=== PATIENT | female | born 2000 | race Caucasian/White ===

== ENCOUNTER 2019-01-23 15:43 | Inpatient (IN) | payer OTHER ==
[2019-01-23] MEDS ORDERED: BETAMET ACET/BETAMET NA PH 30 MG/5 ML VIAL ONE (16:29)
[2019-01-23] MEDS: BETAMET ACET/BETAMET NA PH 30 MG/5 ML VIAL IM SCH (16:35)
[2019-01-23 16:52] VITALS: BMI 38.0
[2019-01-23 17:39] LABS: BASO % 0.2 % (0-2.0); EOS % 0.2 % (0-4.5); HEMATOCRIT 28.1 % (32.4-45.2); HEMOGLOBIN 9.1 GM/dL (10.7-15.3); LYMPH % 26.7 % (8-40); MCH 25.4 pg (25.7-33.7); MCHC 32.2 g/dl (32.0-36.0); MEAN CELL VOLUME 78.8 fl (80-96); MEAN PLT VOLUME 9.3 fl (7.5-11.1); NEUT % 67.9 % (42.8-82.8); PLATELET COUNT 201 K/MM3 (134-434); RBC 3.57 M/mm3 (3.60-5.2); RDW 15.4 % (11.6-15.6); RETICULOCYTES 1.88 % (0.5-1.5)
[2019-01-23 17:55] LABS: INR 0.87 (0.83-1.09); PROTHROMBIN TIME (PATIENT) 10.3 SEC (9.7-13.0)
[2019-01-23 17:58] LABS: ACTIVATED PTT 26.2 SECONDS (25.2-36.5)
[2019-01-23 17:59] LABS: ANION GAP 9 MMOL/L (8-16); BLOOD UREA NITROGEN 14 mg/dL (7-18); CALCIUM 7.8 mg/dL (8.5-10.1); CHLORIDE 108 mmol/L (98-107); CO2 24 mmol/L (21-32); CREATININE 0.6 mg/dL (0.55-1.3); GAMMA GLUTAMYL TRANSPEPTIDASE 7 U/L (5-85); GLUCOSE,RANDOM 93 mg/dL (74-106); POTASSIUM 4.2 mmol/L (3.5-5.1); SGOT/AST 38 U/L (15-37); SGPT/ALT 60 U/L (13-61); SODIUM 141 mmol/L (136-145); URIC ACID 3.6 mg/dL (2.6-7.2)
[2019-01-23] MEDS ORDERED: TUBERCULIN PPD 5 TU/0.1ML SYRINGE (IN PATIENT USE ONLY) ID ONE (18:00)
[2019-01-23] MEDS ORDERED: ACETAMINOPHEN 325 MG TABLET (FP) ONE (18:22)
[2019-01-23] MEDS: ACETAMINOPHEN 325 MG TABLET (FP) PO ONE ×2 (18:30→19:00)
[2019-01-23] MEDS ORDERED: ACETAMINOPHEN 325 MG TABLET (FP) PO ONE (19:15)
[2019-01-23] MEDS ORDERED: DEXTROSE 5%-LACTATED RINGERS 1,000 ML IV SCH (19:30)
[2019-01-23] MEDS ORDERED: MAGNESIUM 4GM/H20 - 4 GM/100 ML IVPB IVPB SCH (20:25)
[2019-01-23] MEDS ORDERED: MAGNESIUM SULFATE 20GM/500ML - 20 GM/500 ML INFUS.BAG ONE (20:26)
[2019-01-23] MEDS ORDERED: MAGNESIUM SULFATE IN WATER 4 GM/50 ML IVPB IVPB ONE (20:26)
[2019-01-23] MEDS: MAGNESIUM SULFATE 20GM/500ML - 20 GM/500 ML INFUS.BAG IV SCH (20:55)
--- NOTE | 2019-01-23 21:15 | HP ---
Past Medical History - Admission History of Present Illness: 18 yo @ 33 3/7 wks by first trimester ultrasound, EDC 03/10/2019 complicated by: 1. Obesity - BMI 35 Normal early GCT (83) and normal routine GCT screen (99) 2. Anemia - on ferrous sulfate 3. Rubella Non-immune Patient was seen at her routine obstetrical visit at 32 weeks where she was noted to have 4+ urine protein and new onset edema. She had normal blood pressures at that time and denied preeclamptic symptoms. She collected a 24 hour urine which resulted in 4700 grams and had an elevated AST 36, ALT 76. She was seen in the office today with BPs 138 / 93. She was sent to L&D for BP monitoring, betamethasone administration and repeat labs. 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 Weeks Gestation by Dates: 33.3 ...EDC by Dates: 03/10/19 Heme/Onc: Yes: Anemia - Past Surgical History Hx Myomectomy: No Hx Transabdominal Cerclage: No Additional Surgical History: Tonsils & Adenoids. Laparoscopic cholecystectomy - Smoking History Smoking history: Never smoked Have you smoked in the past 12 months: No - Alcohol/Substance Use Hx Alcohol Use: No History of Substance Use: reports: None - Social History History of Recent Travel: No Home Medications - Allergies Allergies/Adverse Reactions: Allergies Allergy/AdvReac Type Severity Reaction Status Date / Time No Known Drug Allergies Allergy Verified 12/17/18 20:26 - Home Medications Home Medications: Ambulatory Orders Vit 108/Iron/Folic AC [ One Tablet] 1 tab PO DAILY 12/17/18 Family Disease History - Family Disease History Family History: Denies Review of Systems - Review of Systems Constitutional: reports: No Symptoms HENT: reports: No Symptoms Neck: reports: No Symptoms Cardiovascular: reports: No Symptoms Respiratory: reports: No Symptoms Gastrointestinal: reports: No Symptoms Genitourinary: reports: No Symptoms Musculoskeletal: reports: No Symptoms Integumentary: reports: No Symptoms Neurological: reports: Headache (mild) Hematology/Lymphatic: reports: No Symptoms Psychiatric: reports: No Symptoms Physical Exam - Maternity Vital Signs: Vital Signs Temperature 97.6 F 01/23/19 16:30 Pulse Rate 66 01/23/19 19:30 Respiratory Rate 18 01/23/19 19:30 Blood Pressure 161/100 01/23/19 19:30 O2 Sat by Pulse Oximetry (%) Constitutional: Yes: Well Nourished, No Distress, Calm Cardiovascular: Yes: Regular Rate and Rhythm Lungs: Clear to auscultation - Abdominal Exam/OB Number of Fetuses: Single Contractions: No Category: I Accelerations: Non-Uniform Decelerations: None - Physical Exam Edema: Yes Edema: LLE: 1+, RLE: 1+ ...Motor Strength: WNL Psychiatric: Yes: Alert, Oriented - Labs Lab Results: CBC, BMP 01/23/19 17:00 01/23/19 17:00 PNL: O positive, antibody negative, RPR NR; Varicella immune; *Rubella non- immune; Parvo immune; HCV neg; HBS Ag neg; HIV neg; Early GCT WNL; Routine GCT WNL Hemorrhage Risk Assessment - Risk Factors Medium Risk Factors: Yes: None High Risk Factors: Yes: None Risk Score: 1 Risk Level: Medium Risk Assessment/Plan 18 yo @ 33 wks with preeclampisa 1. Admit to L&D 2. PEC labs repeated 3. Will start magnesium sulfate for seizure prophylaxis 4. Will start steroid course 5. Plan for repeat ultrasound in the morning with MFM consult 6. Will continue to monitor
[2019-01-24] MEDS ORDERED: MAGNESIUM SULFATE 20GM/500ML - 20 GM/500 ML INFUS.BAG ONE ×2 (05:53→18:08)
[2019-01-24] MEDS: MAGNESIUM SULFATE 20GM/500ML - 20 GM/500 ML INFUS.BAG IV SCH (06:40)
--- NOTE | 2019-01-24 08:44 | PN ---
Progress Note (SOAP) - Subjective History of Present Illness: No acute events overnight Mild headache No chest pain, shortness of breath, right upper quadrant pain + FM, no LOF, VB or contractions - Current Medications Current Medications: Active Medications Betamethasone Acet/Betameth SodPhos (Celestone Soluspan -) 12.5 mg IM Q24H [facility] Stop: 01/24/19 16:31 Last Admin: 01/23/19 16:35 Dose: 12.5 mg Magnesium Sulfate (Magnesium Sulfate 20gm/500ml -) 20 gm in 500 mls @ 50 mls/ hr IV ASDIR LEI Last Admin: 01/24/19 06:40 Dose: 50 mls/hr Dextrose/Lactated Ringer's (D5-Lr -) 1,000 mls @ 75 mls/hr IV ASDIR LEI Last Admin: 01/23/19 19:30 Dose: 75 mls/hr - Objective Vital Signs: Vital Signs Temperature 98.7 F 01/24/19 05:59 Pulse Rate 75 01/24/19 08:00 Respiratory Rate 18 01/24/19 08:00 Blood Pressure 129/91 01/24/19 08:00 O2 Sat by Pulse Oximetry (%) Constitutional: Yes: Well Nourished, No Distress, Calm Cardiovascular: Yes: Regular Rate and Rhythm Respiratory: Yes: Regular, CTA Bilaterally Gastrointestinal: Yes: Soft Genitourinary: No: Vaginal Bleeding Extremities: Yes: WNL, Other (+2 DTR) Edema: LLE: 1+, RLE: 1+ Neurological: Yes: Alert, Oriented ...Motor Strength: Yes: WNL Psychiatric: Yes: Alert, Oriented Labs Lab Results: CBC, BMP 01/23/19 17:00 01/23/19 17:00 Assessment/Plan 18 yo @ 33 wks, admitted with preeclampsia 1. Magnesium for seizure prophylaxis BPs not requiring antihypertensives overnight Plan to continue monitoring BPs 2. Plan for ultrasound and MFM evaluation this morning Discussed case with Dr. Mendez 3. Will continue to monitor
[2019-01-24] MEDS ORDERED: ACETAMINOPHEN 325 MG TABLET (FP) ONE ×2 (10:15)
[2019-01-24] MEDS ORDERED: ACETAMINOPHEN 325 MG TABLET (FP) PO ONE (11:00)
[2019-01-24 13:10] LABS: RETICULOCYTES 2.44 % (0.5-1.5)
[2019-01-24 13:39] LABS: MAGNESIUM 6.5 mg/dL (1.8-2.4); URIC ACID 3.4 mg/dL (2.6-7.2)
[2019-01-24] MEDS: BETAMET ACET/BETAMET NA PH 30 MG/5 ML VIAL IM SCH (16:34)
[2019-01-24] MEDS ORDERED: DEXTROSE 5%-LACTATED RINGERS 1,000 ML IV SCH (17:00)
[2019-01-24] MEDS ORDERED: MAGNESIUM SULFATE 20GM/500ML - 20 GM/500 ML INFUS.BAG IV SCH (17:00)
[2019-01-24] MEDS ORDERED: DINOPROSTONE 10 MG VAGINAL SUPPOSITORY VG ONE (18:36)
--- NOTE | 2019-01-24 18:36 | PN ---
Progress Note, Physician Chief Complaint: 18yo P0 @ 33.4 weeks admitted from the office with Preeclampsia, diagnosed by Repeated elevated BPs and proteinuria. Normal blood work, except for mildly elevated, stable one of LFTs. She currently on MgSo4, s/p seconed dose of Celestone. She is not c/o ALMARAZ, RUQ pain, or visual changes. - Current Medication List Current Medications: Active Medications Magnesium Sulfate (Magnesium Sulfate 20gm/500ml -) 20 gm in 500 mls @ 25 mls/ hr IV ASDIR LEI Last Admin: 01/24/19 15:20 Dose: 25 mls/hr Dextrose/Lactated Ringer's (D5-Lr -) 1,000 mls @ 100 mls/hr IV ASDIR LEI Last Admin: 01/24/19 15:20 Dose: 100 mls/hr - Objective Vital Signs: Vital Signs Temperature 98.4 F 01/24/19 16:00 Pulse Rate 76 01/24/19 17:00 Respiratory Rate 18 01/24/19 17:00 Blood Pressure 133/89 01/24/19 17:00 O2 Sat by Pulse Oximetry (%) Constitutional: Yes: Well Nourished, No Distress, Calm Eyes: Yes: WNL HENT: Yes: WNL Neck: Yes: WNL Cardiovascular: Yes: WNL, Regular Rate and Rhythm Respiratory: Yes: CTA Bilaterally Gastrointestinal: Yes: WNL Genitourinary: Yes: WNL Musculoskeletal: Yes: WNL Extremities: Yes: WNL Edema: LLE: Trace, RLE: Trace Peripheral Pulses WNL: Yes Integumentary: Yes: WNL Neurological: Yes: WNL, Alert, Oriented ...Motor Strength: WNL Psychiatric: Yes: WNL, Alert, Oriented Labs: CBC, BMP 01/24/19 12:30 01/23/19 17:00 INR, PTT INR 0.87 (0.83-1.09) 01/23/19 17:00 Assessment/Plan 18yo P0 @ 33.4wk with Preeclampsia, currently stable s/p Celestone for lung maturity Seen by MFM, Dr. Major, recommendation to deliver by tomorrow now on 1gm of MgSo4 for Preeclampsia and neuroprophylaxis Modes of delivery discussed with patient and family baby is in vertex presentation so induction of labor vs. elective c/section discussed Induction process would be two step, since her cervix is unfavorable - first cervical ripening, than Pitocin induction. Explained that induction can only by undertaken as alma as both she and baby are stable. Low success of induction discussed as well since is not full term and she is on MgSo4 for seizure prophylaxis, which also act as a tocolytic. After lengthy discussion, she Chooses to proceed with cervidil induction
--- NOTE | 2019-01-24 20:47 | PN ---
Progress Note (short form) - Note Progress Note: hx of pih on mgso4 , no c/o bp 139/89 cervidil risks discussed , cx 1 cm 5o vx -2 mi, fhr cat 1, no contraction, cervidil inserted
[2019-01-25 01:34] LABS: BASO % 0.1 % (0-2.0); HEMATOCRIT 28.7 % (32.4-45.2); HEMOGLOBIN 9.3 GM/dL (10.7-15.3); LYMPH % 17.5 % (8-40); MCH 25.4 pg (25.7-33.7); MCHC 32.2 g/dl (32.0-36.0); MEAN CELL VOLUME 78.9 fl (80-96); MONO % 1.9 % (3.8-10.2); NEUT % 80.5 % (42.8-82.8); PLATELET COUNT 231 K/MM3 (134-434); RBC 3.64 M/mm3 (3.60-5.2); RDW 15.5 % (11.6-15.6); WHITE BLOOD COUNT 5.2 K/mm3 (4.0-10.0)
[2019-01-25 02:08] LABS: ALBUMIN 1.9 g/dl (3.4-5.0); ALK PHOS 425 U/L (45-117); ANION GAP 8 MMOL/L (8-16); BILIRUBIN,DIRECT 0.3 mg/dL (0.0-0.2); BILIRUBIN,TOTAL 0.5 mg/dL (0.2-1); BLOOD UREA NITROGEN 15 mg/dL (7-18); CALCIUM 7.3 mg/dL (8.5-10.1); CHLORIDE 106 mmol/L (98-107); CO2 21 mmol/L (21-32); CREATININE 0.5 mg/dL (0.55-1.3); GLUCOSE,RANDOM 113 mg/dL (74-106); MAGNESIUM 5.3 mg/dL (1.8-2.4); POTASSIUM 4.6 mmol/L (3.5-5.1); SGOT/AST 37 U/L (15-37); SGPT/ALT 64 U/L (13-61); SODIUM 135 mmol/L (136-145); TOT PROT 5.6 g/dl (6.4-8.2); URIC ACID 3.4 mg/dL (2.6-7.2)
--- NOTE | 2019-01-25 07:31 | PN ---
Progress Note (short form) - Note Progress Note: cx 3 cm , 80 , vx -2 mi, fhr cat 1, irregular contraction
[2019-01-25] MEDS ORDERED: MAGNESIUM SULFATE 20GM/500ML - 20 GM/500 ML INFUS.BAG ONE ×2 (09:37→19:04)
[2019-01-25] MEDS ORDERED: AMPICILLIN SODIUM 2 GM VIAL ONE (12:27)
[2019-01-25] MEDS: AMPICILLIN - 1 GM in SODIUM CHLORIDE 100 ML IVPB SCH ×2 (12:30→16:30)
[2019-01-25] MEDS ORDERED: AMPICILLIN - 2 GM in SODIUM CHLORIDE 100 ML IVPB ONE (12:30)
[2019-01-25] MEDS ORDERED: DEXTROSE 5%-LACTATED RINGERS 1,000 ML IV SCH (16:30)
[2019-01-25] MEDS ORDERED: AMPICILLIN SODIUM 1 GM VIAL ONE (16:32)
--- NOTE | 2019-01-25 16:32 | PN ---
Ante-Partal Exam - Subjective Subjective: 18yo P0 with at EGA 33 6/7wk induced for severe preeclampsia undergoing labor indx. The Cervidil was removed this morning. The pt has no complaints at this time but has irregular contractions. She denies SOB, ALMARAZ, scotoma, abdominal pain. Vital Signs: Vital Signs Temperature 98.4 F 01/25/19 14:30 Pulse Rate 73 01/25/19 15:00 Respiratory Rate 18 01/25/19 15:00 Blood Pressure 129/86 01/25/19 15:00 O2 Sat by Pulse Oximetry (%) Bleeding: No Headache: No Visual changes: No Right upper quadrant pain: No Pain (scale 1-10): 3 - Contractions Contractions: Yes Regularity: Irregular Intensity: Mild Monitor Mode: External - Exam during Labor Heart Rate: 130 Variability: Moderate Heart Rate Location: Midline Category: I Monitor Accelerations: Present Monitor Decelerations: None Exam: Vaginal Dilatation (cm): 3.5 Effacement (%): 80 Amniotic Membrane Status: Intact Presentation: Vertex Station: -3 Remarks: Adequate gynecoid pelvimetry - Intrapartum Hemorrhage Risk Medium Risk Factors: Magnesium Sulfate Treatment High Risk Factors: None Risk Score: 1 Risk Level: Medium Risk - Assessment/Plan Assessment/Plan: 18yo P0 with at EGA 33 6/7wk induced for severe preeclampsia undergoing labor indx. 1. PEC- pt with normal BP and is asymptomatic 2. - s/p steroids and on Mg 3. Mg level was high and was temporarily stopped. plan to recheck the level and restart Mg 4. GBS unknown- IV abx for GBS prophylaxis. 5. Labor- start pitocin. Fetus with Category I tracing and adequate pelvimetry.
[2019-01-25] MEDS ORDERED: OXYTOCIN 30 UNITS in 0.9% NS 30 UNIT/500 ML INFUS.BAG IVPB SCH (16:45)
[2019-01-25] MEDS ORDERED: OXYTOCIN 30 UNITS in 0.9% NS 30 UNIT/500 ML INFUS.BAG IVPB ONE (16:52)
[2019-01-25] MEDS: MAGNESIUM SULFATE 20GM/500ML - 20 GM/500 ML INFUS.BAG IV SCH (19:00)
--- NOTE | 2019-01-25 20:04 | PN ---
Ante-Partal Exam - Subjective Subjective: No complaints. Reports mild irregular contractions. Vital Signs: Vital Signs Temperature 98.6 F 01/25/19 17:30 Pulse Rate 65 01/25/19 18:30 Respiratory Rate 20 01/25/19 18:30 Blood Pressure 134/94 01/25/19 18:30 O2 Sat by Pulse Oximetry (%) Bleeding: No Headache: No Visual changes: No Right upper quadrant pain: No Pain (scale 1-10): 2 - Contractions Contractions: Yes Regularity: Irregular Intensity: Mild Monitor Mode: External - Exam during Labor Heart Rate: 130 Variability: Moderate Heart Rate Location: Midline Category: I Monitor Accelerations: Present Monitor Decelerations: None Exam: Vaginal Dilatation (cm): 3.5 Effacement (%): 80 Amniotic Membrane Status: Ruptured (AROM clear) Amniotic Fluid: Clear Presentation: Vertex Station: -3 - Intrapartum Hemorrhage Risk Medium Risk Factors: Magnesium Sulfate Treatment High Risk Factors: None Risk Score: 1 Risk Level: Medium Risk - Assessment/Plan Assessment/Plan: Pt with severe preeclampsia. Fetus with Category I tracing. AROM done. Plan to monitor labor. If not in labor w/in next few hours, plan to offer C/S
--- NOTE | 2019-01-25 21:15 | PN ---
Ante-Partal Exam - Subjective Subjective: Pt is c/o blurry vision. She has no other complaints. BP 150/101 Vital Signs: Vital Signs Temperature 98.3 F 01/25/19 20:00 Pulse Rate 65 01/25/19 18:30 Respiratory Rate 20 01/25/19 18:30 Blood Pressure 134/94 01/25/19 18:30 O2 Sat by Pulse Oximetry (%) Bleeding: No Headache: No Visual changes: No Right upper quadrant pain: No Pain (scale 1-10): 5 - Contractions Contractions: Yes Regularity: Irregular Intensity: Moderate Monitor Mode: External - Exam during Labor Heart Rate: 135 Variability: Moderate Heart Rate Location: Midline Category: II Monitor Accelerations: Present Monitor Decelerations: Early (occasonally) Exam: Vaginal Dilatation (cm): 3 Effacement (%): 80 Amniotic Membrane Status: Leaking Nitrazine Test: Positive Amniotic Fluid: Clear Presentation: Vertex Station: -3 - Intrapartum Hemorrhage Risk Medium Risk Factors: Magnesium Sulfate Treatment High Risk Factors: None Risk Score: 1 Risk Level: Medium Risk - Assessment/Plan Assessment/Plan: P0 undergoing labor induction. She is in latent labor. symptomatic severe PEC. Fetus with category II tracing. The decision was made to proceed with delivery by C/S. We discussed the risks and benefits of C/S at length, including but not limited to scarring, pain, bleeding, infection, injury to underlying organs and structures, need for additional surgery to repair/treat any problems or complications, complications/injuries, etc. The pt verbalized her understanding and requested to proceed with surgery. The pt is aware that all surgeries have risks and no guarantees can be provided.
[2019-01-25] MEDS ORDERED: hydrALAZINE HCL 20 MG/ML VIAL IVPUSH ONE (21:20)
[2019-01-25] MEDS ORDERED: hydrALAZINE HCL 20 MG/ML VIAL ONE (21:22)
--- NOTE | 2019-01-25 21:22 | PN ---
Progress Note (short form) - Note Progress Note: Repeat BP 159/97 Will give hydralazine 10mg IVP x 1.
[2019-01-25] MEDS ORDERED: morphine SULFATE/Preservative Free 0.5 MG/ML (1cc Syringe) ONE (21:44)
[2019-01-25] MEDS ORDERED: IBUPROFEN 600 MG TABLET (FP) PO PRN (22:06)
[2019-01-25] MEDS ORDERED: ONDANSETRON 4 MG/2 ML VIAL IVPUSH PRN (22:06)
[2019-01-25] MEDS ORDERED: ceFAZolin SODIUM 1 GM VIAL ONE (22:14)
[2019-01-25] MEDS ORDERED: PHENYLEPHRINE HCL 10 MG/1 ML SINGLE DOSE VIAL ONE (22:14)
--- NOTE | 2019-01-25 22:49 | PN ---
Progress Note (short form) - Note Progress Note: Patient underwent section. I assisted Dr. Chinchilla and remained there (hopefully helpful) for the entire case. JR
[2019-01-25 22:58] LABS: ARTERIAL BLOOD GAS BASE EXCESS -1.7 meq/l (-2-2); ARTERIAL BLOOD GAS PCO2 58.9 mmHg (35-45)
[2019-01-25] MEDS ORDERED: OXYTOCIN 10 UNITS/ML VIAL ONE ×4 (22:59)
[2019-01-25 23:00] LABS: VENOUS PC02 51.6 mmHg (41-51); VENOUS PH 7.31 (7.31-7.41); VENOUS PO2 18.5 mmHg (30-40)
--- NOTE | 2019-01-25 23:07 | OP ---
Operative Note - Note: Operative Date: 01/25/19 Pre-Operative Diagnosis: at EGA 33w6d with severe preeclampsia. Failed labor indx Operation: Primary LT C/S Findings: Live baby girl in vtx presentation, no meconium in amniotic fluid, 8/9, wt 1985g. Normal uterus/ovaries/tubes Post-Operative Diagnosis: Same as Pre-op Surgeon: Sami Chinchilla Supervisor Electrolytic Tinning: Ethan Villanueva Anesthesiologist/PUBLIC HEALTH SERVICE OFFICER: John Diaz Anesthesia: Spinal Specimens Removed: Placenta Estimated Blood Loss (mls): 600 Drains & Tubes with Location: Patel cath Drains, Volume Out (mls): 60 Blood Volume Replaced (mls): 0 Fluid Volume Replaced (mls): 1,000 Operative Report Dictated: Yes
[2019-01-25 23:11] LABS: ARTERIAL BLOOD GAS PO2 12.7 mmHg (80-105)
[2019-01-25 23:13] LABS: ARTERIAL BLOOD GAS pH 7.28 (7.35-7.45)
[2019-01-26] MEDS: AMPICILLIN - 1 GM in SODIUM CHLORIDE 100 ML IVPB SCH (00:29)
--- NOTE | 2019-01-26 07:19 | OP ---
DATE OF OPERATION: 01/25/2019 PREOPERATIVE DIAGNOSIS: at estimated gestational age of 33 weeks and 6 days with severe preeclampsia, failed labor induction. POSTOPERATIVE DIAGNOSIS: at estimated gestational age of 33 weeks and 6 days with severe preeclampsia, failed labor induction, delivered. PROCEDURE: Primary low transverse section via Pfannenstiel skin incision. SURGEON: Sami Chinchilla MD KILN REPAIRER: Ethan Villanueva MD ANESTHESIOLOGIST: John Diaz MD ANESTHESIA: Spinal. COMPLICATIONS: None. ESTIMATED BLOOD LOSS: 600 mL. URINE OUTPUT: 60 mL. IV FLUIDS: 1000 mL. PATHOLOGY: Placenta. FINDINGS: A live baby girl in vertex presentation. No meconium in amniotic fluid. Apgars 8/9. Baby's weight is reported as 1985 g. Normal uterus, ovaries, and fallopian tubes. INDICATION FOR A PROBATE PARALEGAL: The surgical supervisor was present for the entire surgery. The billing and accounting staff assistant was necessary in order to ensure safe surgery. Surgery was necessary to maintain hemostasis and adequate exploration as well as to assist in the delivery of a fetus. Patient's surgery was complicated by severe preeclampsia and maternal obesity. DESCRIPTION OF PROCEDURE: The patient was met preoperatively. Risks, benefits, and alternatives of surgery were discussed in detail. All questions were answered. The patient was brought to the OR with the IV running. She was placed on the surgical table in the sitting position. The spinal anesthesia was achieved without difficulty. The patient was then placed in a supine position with a leftward tilt. A Patel catheter was left to drain to gravity. The patient was prepped and draped in a usual sterile fashion. The time-out procedure was conducted as per standard protocol. The level of anesthesia was checked and found to be adequate. The surgeons then proceeded with the operation. A Pfannenstiel skin incision was made with the knife approximately 2 cm above the pubic symphysis. The incision was carried down to the level of the fascia. The fascia was incised in the midline, and the incision was extended bilaterally using Norman scissors. The fascia was dissected away from the rectus muscles superiorly and inferiorly. The rectus muscles were in the midline. The peritoneum was identified and entered sharply. The peritoneal incision was extended superiorly and inferiorly using Metzenbaum scissors. The bladder peritoneum was incised over the lower transverse uterine segment. The bladder peritoneum was then dissected using sharp technique. The bladder was reflected downwards using a [place] retractor. The lower uterine segment was then incised transversely using a knife. The incision was extended bilaterally using bandage scissors. The baby was delivered from vertex presentation and without complications. The baby was crying spontaneously. The umbilical cord was clamped and cut. The baby was handed to the awaiting manager relocation. A segment of the umbilical cord was secured from umbilical cord gas. The placenta was delivered manually and without complications. The uterus was cleared of all clot and debris using laparotomy laps. The uterine incision was closed using a 0 Biosyn suture with a running, locking stitch. The uterine incision was then imbricated using a secondary level of closure with the Biosyn suture. The bladder peritoneum was closed using a 0 Biosyn suture with good hemostasis and approximation. The operative site was irrigated using copious amounts of normal saline. Once the saline was aspirated, good hemostasis was confirmed. The parietal peritoneum was closed using a 2-0 chromic suture. The rectus muscles were approximated in the morning using several interrupted 2-0 chromic sutures. The fascia was closed using a 0 Vicryl suture with a running stitch. The subcutaneous adipose tissues and Lilly fascia were approximated using several interrupted 2-0 chromic sutures. The skin was closed with a 3-0 Vicryl stitch using a subcutaneous closure. Sponge, lap, needle, and instrument counts were correct. The patient tolerated the procedure well and was transferred to the recovery room in stable condition. Negrita [id number]
[2019-01-26] MEDS ORDERED: OXYTOCIN 20 UNITS in 0.9% NS 20 UNIT/1,000 ML INFUS.BAG IV ONE ×2 (07:49→16:49)
[2019-01-26] MEDS: OXYTOCIN 20 UNITS in 0.9% NS 20 UNIT/1,000 ML INFUS.BAG IV SCH ×2 (09:00→17:03)
--- NOTE | 2019-01-26 10:00 | PN ---
Progress Note, Physician Chief Complaint: s/p c section for severe pre eclampsia post op day one History of Present Illness: under spinal anesthesia with duramorph for post op pain control - Current Medication List Current Medications: Active Medications Acetaminophen (Tylenol -) 650 mg PO Q4H PRN PRN Reason: PAIN LEVEL 1-5 Diphenhydramine HCl (Benadryl Injection -) 25 mg IVPUSH Q4H PRN PRN Reason: Pruritis Magnesium Sulfate (Magnesium Sulfate 20gm/500ml -) 20 gm in 500 mls @ 25 mls/ hr IV [facility] Last Admin: 01/25/19 19:00 Dose: 25 mls/hr Oxytocin/Sodium Chloride (Normal Saline+20 Units Oxytocin -) 20 unit in 1,000 mls @ 100 mls/hr IV ASDIR LEI Ibuprofen (Motrin -) 600 mg PO Q4H PRN PRN Reason: PAIN LEVEL 1-5 Ondansetron HCl (Zofran Injection) 4 mg IVPUSH Q4H PRN PRN Reason: NAUSEA - Objective Vital Signs: Vital Signs Temperature 98.3 F 01/26/19 05:30 Pulse Rate 73 01/26/19 09:30 Respiratory Rate 20 01/26/19 09:30 Blood Pressure 143/90 01/26/19 09:30 O2 Sat by Pulse Oximetry (%) 97 01/26/19 00:00 Constitutional: Yes: Well Nourished Cardiovascular: Yes: WNL Respiratory: Yes: WNL Gastrointestinal: Yes: WNL Labs: CBC, BMP 01/25/19 01:15 01/25/19 01:15 INR, PTT INR 0.87 (0.83-1.09) 01/23/19 17:00 Fibrinogen > 500.0 mg/dL (238-498) H 01/25/19 01:15 Assessment/Plan No adverse effect of anesthetic, No itching or headache, dept of anesthesia will sign off care at this time
[2019-01-26 11:46] LABS: BASO % 0.1 % (0-2.0); EOS % 0.1 % (0-4.5); HEMATOCRIT 28.2 % (32.4-45.2); HEMOGLOBIN 9.1 GM/dL (10.7-15.3); LYMPH % 19.6 % (8-40); MCH 25.6 pg (25.7-33.7); MCHC 32.3 g/dl (32.0-36.0); MEAN CELL VOLUME 79.2 fl (80-96); MEAN PLT VOLUME 8.6 fl (7.5-11.1); MONO % 6.9 % (3.8-10.2); NEUT % 73.3 % (42.8-82.8); PLATELET COUNT 221 K/MM3 (134-434); RBC 3.56 M/mm3 (3.60-5.2); RDW 15.7 % (11.6-15.6); WHITE BLOOD COUNT 8.6 K/mm3 (4.0-10.0)
[2019-01-26 12:21] LABS: ALBUMIN 1.6 g/dl (3.4-5.0); ALK PHOS 324 U/L (45-117); ANION GAP 6 MMOL/L (8-16); BILIRUBIN,TOTAL 0.4 mg/dL (0.2-1); BLOOD UREA NITROGEN 14 mg/dL (7-18); CHLORIDE 106 mmol/L (98-107); CO2 25 mmol/L (21-32); CREATININE 0.6 mg/dL (0.55-1.3); GLUCOSE,RANDOM 80 mg/dL (74-106); MAGNESIUM 4.5 mg/dL (1.8-2.4); POTASSIUM 4.3 mmol/L (3.5-5.1); SGOT/AST 39 U/L (15-37); SGPT/ALT 56 U/L (13-61); SODIUM 137 mmol/L (136-145); TOT PROT 4.5 g/dl (6.4-8.2)
[2019-01-26 12:22] LABS: CALCIUM 6.7 mg/dL (8.5-10.1)
--- NOTE | 2019-01-26 15:57 | PN ---
Post Progress Note - Subjective Subjective: No complaints, pain is well controlled, no ALMARAZ or scotomas. Post Day: 1 Type of Delivery: Primary C/S Vital Signs: Vital Signs Temperature 98.7 F 01/26/19 14:00 Pulse Rate 76 01/26/19 15:00 Respiratory Rate 20 01/26/19 15:00 Blood Pressure 133/90 01/26/19 15:00 O2 Sat by Pulse Oximetry (%) 97 01/26/19 00:00 Breast Exam: Yes: Soft Uterus: Yes: Fundus below umbilicus, Non-tender Incision: Yes: Dressing dry and intact Abdomen/GI: Yes: Abdomen soft, Passing flatus, Tolerating PO Lochia, amount: Small Extremities: Yes: Calves non-tender Perineum: Yes: Intact Activity: Other (in bed) - Labs Labs: CBC WBC 8.6 K/mm3 (4.0-10.0) 01/26/19 10:30 RBC 3.56 M/mm3 (3.60-5.2) L 01/26/19 10:30 Hgb 9.1 GM/dL (10.7-15.3) L 01/26/19 10:30 Hct 28.2 % (32.4-45.2) L 01/26/19 10:30 MCV 79.2 fl (80-96) L 01/26/19 10:30 MCH 25.6 pg (25.7-33.7) L 01/26/19 10:30 MCHC 32.3 g/dl (32.0-36.0) 01/26/19 10:30 RDW 15.7 % (11.6-15.6) H 01/26/19 10:30 Plt Count 221 K/MM3 (134-434) 01/26/19 10:30 MPV 8.6 fl (7.5-11.1) 01/26/19 10:30 Absolute Neuts (auto) 6.3 K/mm3 (1.5-8.0) 01/26/19 10:30 Neutrophils % 73.3 % (42.8-82.8) 01/26/19 10:30 Lymphocytes % 19.6 % (8-40) 01/26/19 10:30 Monocytes % 6.9 % (3.8-10.2) D 01/26/19 10:30 Eosinophils % 0.1 % (0-4.5) D 01/26/19 10:30 Basophils % 0.1 % (0-2.0) 01/26/19 10:30 Nucleated RBC % 0 % (0-0) 01/26/19 10:30 Retic Count 2.44 % (0.5-1.5) H D 01/24/19 12:30 Haptoglobin 134 mg/dL (34-200) 01/24/19 12:30 Assessment/Plan POD#1 s/p primary LT C/S for failed indx and severe preeclampsia. The pt is doing well. Asymptomatic for anemia PEC is improving, BP normalizing but still has occasional 140's/90's. Plan to continue Mg for now.
[2019-01-26] MEDS ORDERED: MAGNESIUM SULFATE 20GM/500ML - 20 GM/500 ML INFUS.BAG ONE (16:11)
[2019-01-26] MEDS: MAGNESIUM SULFATE 20GM/500ML - 20 GM/500 ML INFUS.BAG IV SCH (16:15)
[2019-01-27] MEDS ORDERED: ACETAMINOPHEN 325 MG TABLET (FP) ONE (00:18)
[2019-01-27] MEDS ORDERED: IBUPROFEN 600 MG TABLET (FP) PO ONE (00:19)
[2019-01-27] MEDS: ACETAMINOPHEN 325 MG TABLET (FP) PO PRN ×4 (00:22→19:15)
[2019-01-27] MEDS: AMPICILLIN - 1 GM in SODIUM CHLORIDE 100 ML IVPB SCH (02:26)
--- NOTE | 2019-01-27 10:45 | PN ---
Post Progress Note - Subjective Subjective: No complaints. Ambulating, passing flatus. Pumping. Post Day: 2 Type of Delivery: Primary C/S Vital Signs: Vital Signs Temperature 98.6 F 01/27/19 00:30 Pulse Rate 78 01/27/19 06:00 Respiratory Rate 18 01/27/19 06:00 Blood Pressure 120/86 01/27/19 06:00 O2 Sat by Pulse Oximetry (%) 98 01/27/19 00:30 Breast Exam: Yes: Soft Uterus: Yes: Fundus Firm, Fundus below umbilicus Incision: Yes: Sutures intact Abdomen/GI: Yes: Abdomen soft, Tolerating PO Lochia: Yes: Rubra Lochia, amount: Small Extremities: Yes: Calves non-tender Perineum: Yes: Intact Activity: Ambulating - Labs Labs: CBC WBC 8.6 K/mm3 (4.0-10.0) 01/26/19 10:30 RBC 3.56 M/mm3 (3.60-5.2) L 01/26/19 10:30 Hgb 9.1 GM/dL (10.7-15.3) L 01/26/19 10:30 Hct 28.2 % (32.4-45.2) L 01/26/19 10:30 MCV 79.2 fl (80-96) L 01/26/19 10:30 MCH 25.6 pg (25.7-33.7) L 01/26/19 10:30 MCHC 32.3 g/dl (32.0-36.0) 01/26/19 10:30 RDW 15.7 % (11.6-15.6) H 01/26/19 10:30 Plt Count 221 K/MM3 (134-434) 01/26/19 10:30 MPV 8.6 fl (7.5-11.1) 01/26/19 10:30 Absolute Neuts (auto) 6.3 K/mm3 (1.5-8.0) 01/26/19 10:30 Neutrophils % 73.3 % (42.8-82.8) 01/26/19 10:30 Lymphocytes % 19.6 % (8-40) 01/26/19 10:30 Monocytes % 6.9 % (3.8-10.2) D 01/26/19 10:30 Eosinophils % 0.1 % (0-4.5) D 01/26/19 10:30 Basophils % 0.1 % (0-2.0) 01/26/19 10:30 Nucleated RBC % 0 % (0-0) 01/26/19 10:30 Retic Count 2.44 % (0.5-1.5) H D 01/24/19 12:30 Haptoglobin 134 mg/dL (34-200) 01/24/19 12:30 Assessment/Plan POD#2 s/p primary LT C/S for failed indx and severe preeclampsia. The pt is doing well. Asymptomatic for anemia PEC is resolved, BP normal today. Good UO care instructions reviewed. Continue routine postop care. Ambulation encouraged.
[2019-01-27] MEDS: oxyCODONE HCL 5 MG TABLET PO PRN ×3 (11:16→19:16)
[2019-01-28] MEDS: ACETAMINOPHEN 325 MG TABLET (FP) PO PRN ×3 (06:17→22:31)
[2019-01-28] MEDS: oxyCODONE HCL 5 MG TABLET PO PRN ×3 (06:17→22:31)
--- NOTE | 2019-01-28 09:18 | PN ---
Post Progress Note - Subjective Subjective: Patient without acute complaints. No headache, scotomas, blurry vision, abdominal pain. Reports tolerating oral intake without nausea or vomiting. Ambulating without dizziness. Denies fevers or chills. Pain well controlled with oral pain medication. Pumping/breast feeding without issue. Passing flatus. Post Day: 3 Type of Delivery: Primary C/S Vital Signs: Vital Signs Temperature 98.8 F 01/27/19 22:00 Pulse Rate 62 01/28/19 06:00 Respiratory Rate 18 01/28/19 06:00 Blood Pressure 142/99 01/28/19 06:00 O2 Sat by Pulse Oximetry (%) 98 01/27/19 00:30 Breast Exam: Yes: Soft Uterus: Yes: Fundus Firm Incision: Yes: Sutures intact Abdomen/GI: Yes: Abdomen soft, Passing flatus, Tolerating PO Lochia: Yes: Rubra Lochia, amount: Small Extremities: Yes: Calves non-tender, Edema Perineum: Yes: Intact Activity: Ambulating - Labs Labs: CBC WBC 8.6 K/mm3 (4.0-10.0) 01/26/19 10:30 RBC 3.56 M/mm3 (3.60-5.2) L 01/26/19 10:30 Hgb 9.1 GM/dL (10.7-15.3) L 01/26/19 10:30 Hct 28.2 % (32.4-45.2) L 01/26/19 10:30 MCV 79.2 fl (80-96) L 01/26/19 10:30 MCH 25.6 pg (25.7-33.7) L 01/26/19 10:30 MCHC 32.3 g/dl (32.0-36.0) 01/26/19 10:30 RDW 15.7 % (11.6-15.6) H 01/26/19 10:30 Plt Count 221 K/MM3 (134-434) 01/26/19 10:30 MPV 8.6 fl (7.5-11.1) 01/26/19 10:30 Absolute Neuts (auto) 6.3 K/mm3 (1.5-8.0) 01/26/19 10:30 Neutrophils % 73.3 % (42.8-82.8) 01/26/19 10:30 Lymphocytes % 19.6 % (8-40) 01/26/19 10:30 Monocytes % 6.9 % (3.8-10.2) D 01/26/19 10:30 Eosinophils % 0.1 % (0-4.5) D 01/26/19 10:30 Basophils % 0.1 % (0-2.0) 01/26/19 10:30 Nucleated RBC % 0 % (0-0) 01/26/19 10:30 Retic Count 2.44 % (0.5-1.5) H D 01/24/19 12:30 Haptoglobin 134 mg/dL (34-200) 01/24/19 12:30 Assessment/Plan POD#2 s/p primary LT C/S for failed indx and severe preeclampsia. The pt is doing well. Asymptomatic for anemia PEC is improving but BP is still elevated today. Plan trial of Procardia today Good UO care instructions reviewed. Continue routine postop care. Ambulation encouraged.
[2019-01-28] MEDS: NIFEdipine E.R. 30 MG TABLET (FP) PO SCH (09:55)
--- NOTE | 2019-01-29 06:39 | PN ---
Post Progress Note - Subjective Subjective: Patient without acute complaints. No headache, scotomas, blurry vision, abdominal pain. Reports tolerating oral intake without nausea or vomiting. Ambulating without dizziness. Denies fevers or chills. Pain well controlled with oral pain medication. Pumping/breast feeding without issue. Passing flatus., had BM Post Day: 4 Type of Delivery: Primary C/S Vital Signs: Vital Signs Temperature 98.1 F 01/28/19 22:15 Pulse Rate 64 01/29/19 02:15 Respiratory Rate 20 01/29/19 02:15 Blood Pressure 130/72 01/29/19 02:15 O2 Sat by Pulse Oximetry (%) 98 01/27/19 00:30 Breast Exam: Yes: Soft Uterus: Yes: Fundus Firm Incision: Yes: Sutures intact Abdomen/GI: Yes: Abdomen soft Lochia: Yes: Rubra Lochia, amount: Small Extremities: Yes: Calves non-tender Perineum: Yes: Intact Activity: Ambulating - Labs Labs: CBC WBC 8.6 K/mm3 (4.0-10.0) 01/26/19 10:30 RBC 3.56 M/mm3 (3.60-5.2) L 01/26/19 10:30 Hgb 9.1 GM/dL (10.7-15.3) L 01/26/19 10:30 Hct 28.2 % (32.4-45.2) L 01/26/19 10:30 MCV 79.2 fl (80-96) L 01/26/19 10:30 MCH 25.6 pg (25.7-33.7) L 01/26/19 10:30 MCHC 32.3 g/dl (32.0-36.0) 01/26/19 10:30 RDW 15.7 % (11.6-15.6) H 01/26/19 10:30 Plt Count 221 K/MM3 (134-434) 01/26/19 10:30 MPV 8.6 fl (7.5-11.1) 01/26/19 10:30 Absolute Neuts (auto) 6.3 K/mm3 (1.5-8.0) 01/26/19 10:30 Neutrophils % 73.3 % (42.8-82.8) 01/26/19 10:30 Lymphocytes % 19.6 % (8-40) 01/26/19 10:30 Monocytes % 6.9 % (3.8-10.2) D 01/26/19 10:30 Eosinophils % 0.1 % (0-4.5) D 01/26/19 10:30 Basophils % 0.1 % (0-2.0) 01/26/19 10:30 Nucleated RBC % 0 % (0-0) 01/26/19 10:30 Retic Count 2.44 % (0.5-1.5) H D 01/24/19 12:30 Haptoglobin 134 mg/dL (34-200) 01/24/19 12:30 Assessment/Plan 18yo P 1 s/p 1' c/section for sever Preeclampsia VSS, Afebrile BPs controlled with Procardia lavs all wnl D/C today strict PEC precautions RTO in 1 wk for BP and incision check
--- NOTE | 2019-01-29 07:01 | DS ---
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 Signs: Vital Signs Temperature 98.1 F 01/28/19 22:15 Pulse Rate 65 01/29/19 06:00 Respiratory Rate 20 01/29/19 06:00 Blood Pressure 123/77 01/29/19 06:00 O2 Sat by Pulse Oximetry (%) 98 01/27/19 00:30 Constitutional: Yes: Well Nourished, No Distress, Calm Eyes: Yes: WNL HENT: Yes: WNL, Atraumatic, Normocephalic Neck: Yes: WNL, Supple, Trachea Midline Cardiovascular: Yes: WNL, Regular Rate and Rhythm Respiratory: Yes: WNL, Regular, CTA Bilaterally Gastrointestinal: Yes: WNL, Normal Bowel Sounds, Soft Pelvis: Yes: WNL External Genitalia: Yes: Normal ....Post : Yes: Uterus firm, Uterus non-tender Breast(s): Yes: WNL Musculoskeletal: Yes: WNL Extremities: Yes: WNL Edema: No Integumentary: Yes: WNL Wound/Incision: Yes: Clean/Dry, Well Approximated Neurological: Yes: WNL, Alert, Oriented ...Motor Strength: WNL Psychiatric: Yes: WNL, Alert, Oriented Labs: CBC, BMP 01/26/19 10:30 01/26/19 10:30 Delivery - Delivery Section: Primary Type of Anesthesia: Spinal Episiotomy/Laceration: None EBL (cc): 400 Delivery, Single - Stages of Labor Date 1st Stage Initiatied: 01/25/19 Time 1st Stage Initiated: 19:30 Date of Delivery: 01/25/19 Time of Delivery: 22:19 Time Placenta Delivered: 22:21 - Condition of Infant 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 Present: Yes Name: Oksana Ramirez Infant Gender: Female Weight: 4 lb 6 oz Position: Left, OA - 1 Minute Total Score: 8 5 Minutes Total Score: 9 - [place] Feeding Plan Initial Plan: Exclusive throughout hospitalization Benefits of Exclusively reinforced: Yes Discharge Summary Reason For Visit: PROTEIN URIA Sever preeclampsia Procedures: Principal: Primary Low Segment transverse c/section Other Procedures: Unsucessful induction of labor Hospital Course: Unremarcable Condition: Good - Instructions Diet, Activity, Other Instructions: Physical activity Resume your normal everyday activity as tolerated no heavy lifting or exercise until seen by your surgeon. You may walk unlimited [place] of and climb stairs. You may resume driving the car when you feel safe and comfortable behind the wheel. No sexual activity as instructed. Wound care If you have a bandage, leave it on, and keep dry for 48-72 hours. After that time discard the outer bandage. If they are tapes on the skin under the out of bandage leave them in place. They will peel off in the next 7 to 10 days. Do Not Peel them off. You may shower the day after surgery. If there are tapes present on the skin, you may shower over them. Diet There are no dietary restrictions. Eat healthy, high-fiber foods. Drink 6 to 8 glasses of liquid each day. This will assist in keeping your bowels are regular. Pain management You may take Tylenol or acetaminophen or Ibuprofen (for example, Motrin, Advil etc.) from my pain prescription medication is ordered should be taken as prescribed for moderate to severe pain. Call MD for any of the following: Severe pain not relieved by medication Fever of 101 or higher Excessive bleeding or drainage on dressing Inability to urinate Return to office in 1 week for incision and blood pressure check. call for appointment. Referrals: Lorrie Bowser MD [Staff Physician] - Disposition: HOME - Home Medications Comprehensive Discharge Medication List: Ambulatory Orders Vit 108/Iron/Folic AC [ One Tablet] 1 tab PO DAILY 12/17/18 Nifedipine [Procardia Xl] 30 mg PO DAILY #30 tab.er.24 01/29/19 Oxycodone HCl/Acetaminophen [Percocet 5-325 mg Tablet] 1 tab PO Q6H #10 tablet MDD 8 01/29/19
[2019-01-29 08:24] VITALS: BP 131/82; PULSE 70; TEMP 98
[2019-01-29] MEDS: oxyCODONE HCL 5 MG TABLET PO PRN (09:17)
[2019-01-29] MEDS: ACETAMINOPHEN 325 MG TABLET (FP) PO PRN (09:18)
[2019-01-29] MEDS: NIFEdipine E.R. 30 MG TABLET (FP) PO SCH (09:19)
--- NOTE | 2019-01-30 16:48 | PATH ---
Surgical Pathology Report Patient Name: YUE CHU Med. Rec. #: [id number] /Age/Gender: 2000 (Age: 18) / F Account: [id number] Location: [facility] OBS/MANAGER PART Taken: 01/25/2019 Received: 01/28/2019 Reported: 01/30/2019 Physicians: Lorrie Bowser M.D. Specimen(s) Received PLACENTA Clinical History Preeclampsia-magnesium sulfide since 01/23/19 at 8:25 PM Elevated blood pressure 150/100 Final Diagnosis PLACENTA: THIRD TRIMESTER PLACENTA. TRIVASCULAR CORD. MEMBRANES WITH NO DIAGNOSTIC ABNORMALITIES. Electronically Signed Marcelina Villar M.D. Gross Description The specimen is received fresh labeled placenta and is a 379 gram, 15.0 x 11.0 x 3.3 cm. placenta with attached membranes and umbilical cord. The attached membranes are holliday green, meconium stained, thick, cloudy and insert marginally. The umbilical cord measures 8 cm. in length and averages 1 cm. in diameter. The cord inserts eccentrically, 1.5 cm. to the nearest margin. No true knots or strictures are identified. Cut surface of the umbilical cord reveals 3 vessels. The surface is espana green, meconium stained with minimal fibrin deposition and appropriate caliber vessels. The maternal surface is red-brown and intact. Sectioning reveals red-brown, spongy parenchyma. No lesions are identified. Front Desk Assistant sections are submitted in three cassettes as follows: 1- membrane rolls and umbilical cord; 2-3- full thickness sections of placenta. /01/29/2019 [facility]/29/2019
== END 2019-01-29 12:15 | disposition home or self-care (01) | DRG 540 ==
LOC: JLDR 15:43 → J3W 01-27 00:46
PROVIDERS: ADMIT Obstetrics & Gynecology; ATTEND Obstetrics & Gynecology
PROC: 10D00Z1 Extraction of Products of Conception, Low, Open Approach (ICD-10-PCS; principal; 2019-01-25)
DX: O14.14 Severe pre-eclampsia complicating childbirth (principal); O60.14X0 Preterm labor third trimester with preterm delivery third trimester, not applicable or unspecified; O99.214 Obesity complicating childbirth; E66.9 Obesity, unspecified; O99.02 Anemia complicating childbirth; D64.9 Anemia, unspecified; O61.0 Failed medical induction of labor; Z3A.33 33 weeks gestation of pregnancy; Z37.0 Single live birth
CPT/HCPCS: 36415; 36600; 80048; 80053; 80076; 82803; 82977; 83010; 83735; 84450; 84460; 84550; 85025; 85032; 85044; 85384; 85610; 85730; 86593; 86850; 86900; 86901; 88307-TC; 96372